=== PATIENT | male | born 1980 | race Caucasian/White ===

== ENCOUNTER 2017-05-31 21:37 | Emergency (ER) | payer MEDICAID ==
[~2017-05-31] VITALS: Ht 160 cm; Wt 84.5 kg
[2017-05-31 21:42] VITALS: BP 139/84
--- NOTE | 2017-05-31 22:18 | NUR ---
Patient ambulated to bed 3. RN evaluating patient at bedside.
--- NOTE | 2017-05-31 22:20 | NUR ---
36/M C/O EPIGASTRIC PAIN, GRADUALLY WORSENING, NONRADIATING X 3 DAYS. BS ACTIVE X4, ABD SOFT, DISTENDED, + TENDERNESS TO EPIGASTRIC. PT DENIES V/D, FEVER/CHILLS, DENIES DYSURIA, REPORTS NORMAL STOOLS. PMH: GASTRIC ULCERS 07/2016, DENIES RX/OTC
--- NOTE | 2017-05-31 22:24 | NUR ---
Dr. Galvan evaluating patient at bedside.
[2017-05-31] MEDS ORDERED: MORPHINE SULFATE 2 MG/ML SYR IVP ONE (22:40)
[2017-05-31] MEDS ORDERED: ONDANSETRON 4 MG/2 ML VIAL IVP ONE (22:40)
[2017-05-31] MEDS ORDERED: NACL 0.9% 1,000 ML IV ONE (22:40)
[2017-05-31 23:10] LABS: HEMATOCRIT 46.5 % (36-52); HEMOGLOBIN 15.3 g/dL (12.0-18.0); MEAN CORPUSCULAR HEMOGLOBIN 29 pg (27-31); MEAN CORPUSCULAR HGB CONC 33 g/dL (33-37); MEAN CORPUSCULAR VOLUME 88 fL (80-94); PLATELET COUNT (AUTO) 243 K/uL (140-450); RED BLOOD CELL COUNT(AUTO) 5.31 MIL/uL (4.20-6.10); RED CELL DISTRIBUTION WIDTH 12.7 % (11.6-13.7); WHITE BLOOD COUNT (AUTO) 5.4 K/uL (4.8-10.8)
[2017-05-31 23:32] LABS: LYMPHOCYTES % (MANUAL) 52 % (20-46); MONOCYTES % (MANUAL) 4 % (5-12)
[2017-05-31 23:41] LABS: ALBUMIN 3.8 g/dL (3.4-5.0); ANION GAP 10.2 (8-16); CARBON DIOXIDE 29.6 mmol/L (21-32); CREATININE 1.1 mg/dL (0.7-1.3); POTASSIUM 3.8 mmol/L (3.5-5.1); TOTAL BILIRUBIN 0.4 mg/dL (0.0-1.0)
--- NOTE | 2017-06-01 00:35 | NUR ---
IV removed, catheter intact and site benign. Applied folded 4x4 gauze and tape to stop bleeding.
--- NOTE | 2017-06-01 00:40 | NUR ---
Patient discharged with v/s stable. Written and verbal after care instructions given and explained. Patient alert, oriented and verbalized understanding of instructions. Ambulatory with steady gait. All questions addressed prior to discharge. ID band removed. Patient advised to follow up with PMD. Rx of NORCO AND PRILOSEC given. Patient educated on indication of medication including possible reaction and side effects. Opportunity to ask questions provided and answered.
[2017-06-01 00:41] VITALS: BP 122/73
== END 2017-06-01 00:40 | disposition home or self-care (01) ==
LOC: MED 21:37
DX: K29.70 Gastritis, unspecified, without bleeding (principal)
CPT/HCPCS: 36415; 74176; 80053; 81002; 82150; 83615; 83690; 85025; 96361; 96374; 96375; 99285; J2270; J2405; J7030

== ENCOUNTER 2018-10-14 15:35 | Emergency (ER) | payer SELFPAY ==
[~2018-10-14] VITALS: Ht 162.6 cm; Wt 78.0 kg
[2018-10-14 15:35] VITALS: BP 134/72
--- NOTE | 2018-10-14 15:49 | NUR ---
PT AMB TO BED 4.
--- NOTE | 2018-10-14 15:54 | NUR ---
PT IS A 38 Y/O MALE WHO PRESENTS TO THE ED C/O ABD PAIN. PT STATES THAT IT STARTED X10 DAYS AGO. PT REPORTS 8/10 ACHING EPIGASTRIC ABD PAIN THAT RADIATES TO RUQ AND BACK. PT DENIES CP, SOB, REPORTS NAUSEA DENIES VOMITING/DIARRHEA. PT AWAKE AND ALERT, RR EVEN/UNLABORED. PT REPOSITIONED FOR COMFORT, BED IN LOWEST POSITION. ER MD DR. LAZAR NOTIFIED. WILL CONTINUE TO MONITOR. MED HX: DENIES
[2018-10-14] MEDS ORDERED: MORPHINE SULFATE 4 MG/ML SYR IVP ONE (17:00)
[2018-10-14] MEDS ORDERED: ONDANSETRON 4 MG/2 ML VIAL IVP ONE (17:00)
--- NOTE | 2018-10-14 17:00 | NUR ---
DR. PIPER EVALUATING PATIENT AT BEDSIDE.
[2018-10-14 17:08] LABS: APPEARANCE,URINE CLEAR (CLEAR); BILIRUBIN,URINE NEGATIVE (NEGATIVE); BLOOD, URINE NEGATIVE (NEGATIVE); COLOR,URINE YELLOW (YELLOW); LEUKOCYTE ESTERASE ,URINE NEGATIVE (NEGATIVE); NITRITE, URINE NEGATIVE (NEGATIVE); UGLUCOSE NEGATIVE (NEGATIVE)
[2018-10-14 17:20] LABS: BASOPHILS % (AUTO) 0.6 % (0.0-2.0); EOSINOPHILS # (AUTO) 0.1 K/uL (0-0.4); EOSINOPHILS % (AUTO) 1.6 % (0.0-4.0); HEMATOCRIT 45.7 % (36-52); HEMOGLOBIN 15.3 g/dL (12.0-18.0); LYMPHOCYTES # (AUTO) 2.2 K/uL (2.0-11.5); LYMPHOCYTES % (AUTO) 37.5 % (20.5-51.1); MEAN CORPUSCULAR HEMOGLOBIN 30 pg (27-31); MEAN CORPUSCULAR HGB CONC 34 g/dL (33-37); MEAN CORPUSCULAR VOLUME 88.8 fL (80-94); MONOCYTES # (AUTO) 0.4 K/uL (0.8-1.0); MONOCYTES % (AUTO) 6.6 % (1.7-9.3); NEUTROPHILS # (AUTO) 3.1 K/uL (1.8-7.7); NEUTROPHILS % (AUTO) 53.7 % (42.2-75.2); PLATELET COUNT (AUTO) 212 K/uL (140-450); RED BLOOD CELL COUNT(AUTO) 5.14 MIL/uL (4.20-6.10); RED CELL DISTRIBUTION WIDTH 13.8 % (11.6-13.7); WHITE BLOOD COUNT (AUTO) 5.8 K/uL (4.8-10.8)
[2018-10-14 17:37] LABS: ALBUMIN 3.8 g/dL (3.4-5.0); ANION GAP 13.9 (8-16); CARBON DIOXIDE 27.8 mmol/L (21-32); POTASSIUM 3.7 mmol/L (3.5-5.1); TOTAL BILIRUBIN 0.7 mg/dL (0.0-1.0)
--- NOTE | 2018-10-14 18:17 | NUR ---
Dr. Marie re-evaluating patient at bedside.
--- NOTE | 2018-10-14 19:10 | NUR ---
IV removed, catheter intact and site benign. Applied folded 4x4 gauze and tape to stop bleeding.
[2018-10-14 19:11] VITALS: BP 134/76
--- NOTE | 2018-10-14 19:11 | NUR ---
Patient discharged with v/s stable. Written and verbal after care instructions given and explained. Patient alert, oriented and verbalized understanding of instructions. Ambulatory with steady gait. All questions addressed prior to discharge. ID band removed. Patient advised to follow up with PMD. Rx of ZOFRAN, NORCO, MOTRIN given. Patient educated on indication of medication including possible reaction and side effects. Opportunity to ask questions provided and answered.
== END 2018-10-14 19:11 | disposition home or self-care (01) ==
LOC: MED 15:35
DX: R10.11 Right upper quadrant pain (principal); R11.0 Nausea; R35.0 Frequency of micturition
CPT/HCPCS: 36415; 76705; 80053; 81003; 83690; 85025; 96374; 96375; 99284; J2270; J2405; Q0092